=== PATIENT | male | born 1935 | race Caucasian/White ===

== ENCOUNTER → 2016-12-25 | Outpatient (CLI) | payer OTHER | LOC: BMCIMAGING 13:07 | PROVIDERS: ATTEND Internal Medicine | DX: R06.00 Dyspnea, unspecified (principal) ==

== ENCOUNTER → 2017-02-03 | Outpatient (CLI) | payer OTHER | LOC: BMCIMAGING 13:31 | PROVIDERS: ATTEND Psychiatry & Neurology Neurology | DX: M79.605 Pain in left leg (principal) ==

== ENCOUNTER 2017-04-11 08:37 | Day surgery (SDC) | payer OTHER ==
[2017-04-11] MEDS ORDERED: ASPIRIN EC 325 MG TAB PO ONE (08:41)
[2017-04-11] MEDS ORDERED: DIAZEPAM 5 MG TAB PO ONE (08:41)
[2017-04-11] MEDS ORDERED: diphenhydrAMINE 25 MG CAP PO ONE (08:41)
[2017-04-11] MEDS ORDERED: FAMOTIDINE 20 MG TAB PO ONE (08:41)
[2017-04-11] MEDS ORDERED: NS 1,000 ML IV ONE (08:41)
--- NOTE | 2017-04-11 09:10 | PDGENHP ---
History & Physical Chief Complaint: sob History of Present Illness: 81 yo s/p CABG with failed SVG to Cx and patent RIVERS with new cardiomyopathy. EF 50-30% Relevant Physical Exam: Obese male no distress. Alert oriented. Nojvp. chest clear. sternotomy healed. RRR no murmur. fem pulse 2 equal. radial pulse 2 equal Cardiorespiratory Assessment: 1. No contraindications to R/L hc today. 2. New cardiomyopathy with severe CAD.
--- NOTE | 2017-04-11 09:11 | CPEKG ---
Heart Rate: 68 RR Interval: 882 P-R Interval: 336 QRSD Interval: 102 QT Interval: 432 QTC Interval: 460 P [place]: -1 QRS [place]: 27 T Wave [place]: 125 EKG Severity - ABNORMAL ECG - EKG Impression: SINUS RHYTHM WITH PROLONGING ID INTERVAL AND SOME JUNCTIONAL ESCAPE EKG Impression: VENTRICULAR PREMATURE COMPLEX EKG Impression: FIRST DEGREE AV BLOCK EKG Impression: NONSPECIFIC T ABNORMALITIES, LATERAL LEADS Electronically Signed By: Christina Hicks 11-Apr-2017 21:21:22
--- NOTE | 2017-04-11 09:11 | PDPROPOC ---
Sedation Plan of Care Sedation Plan of Care: vital signs stable, mental status noted, patient educated of risks, benefits, alternatives, patient can tolerate sedation ASA Classification: ASA 1 Planned drugs: fentanyl, midazolam Mallampati Score: Class 1 Mallampati Reference Image: Patient passed 3-3-2 rule?: Yes (332)
[2017-04-11 09:24] LABS: % IMMATURE GRANULYOCYTES 0.2 % (0.0-1.1); ABSOLUTE IMMATURE GRANULOCYTES 0.01 10^3/uL (0.00-0.10); ADD DIFF? NO; ADD MORPH? NO; ADD SCAN? NO; ATYPICAL LYMPHOCYTE FLAG 0 (0-99); FRAGMENT RBC FLAG 0 (0-99); HEMOGLOBIN 14.3 g/dL (13.7-17.5); LEFT SHIFT FLG 0 (0-99); LIPEMIA HEMOLYSIS FLAG 90 (0-99); MEAN CELL HEMOGLOBIN 32.7 pg (27.9-34.1); MEAN CELL HEMOGLOBIN CONCENTR. 34.9 g/dL (32.4-36.7); MEAN CELL VOLUME 93.8 fL (81.5-99.8); MEAN PLATELET VOLUME 10.5 fL (8.7-11.7); PLATELET CLUMPS FLAG 20 (0-99); PLATELET COUNT 167 10^3/uL (150-400); RED BLOOD CELL COUNT 4.37 10^6/uL (4.40-6.38); RED CELL DISTRIBUTION WIDTH 12.3 % (11.5-15.2)
[2017-04-11 09:35] LABS: INR 1.15 (0.83-1.16); PROTIME(PATIENT) 14.6 SEC (12.0-15.0)
[2017-04-11] MEDS ORDERED: IOPAMIDOL (ISOVUE-370) 150 ML BTL IV ONE (09:37)
[2017-04-11] MEDS ORDERED: MIDAZOLAM 2 MG/2 ML VIAL ONE (09:37)
[2017-04-11] MEDS ORDERED: fentaNYL 100 MCG/2 ML INJ ONE (09:37)
[2017-04-11] MEDS ORDERED: LIDOCAINE 1% 300 MG/30 ML SDV ONE (09:37)
[2017-04-11 09:48] LABS: ANION GAP 14 mEq/L (8-16); CALCIUM 9.2 mg/dL (8.5-10.4); CARBON DIOXIDE 19 mEq/l (22-31); CHLORIDE 107 mEq/L (97-110); CHOLESTEROL 107 mg/dL (140-220); CHOLESTEROL/HDL RATIO 2.82 RATIO (1.00-4.97); CREATININE 1.4 mg/dL (0.7-1.3); GLOMERULAR FILTRATION RATE 49; GLUCOSE 105 mg/dL (70-100); HIGH DENSITY LIPOPROTEIN 38 mg/dL (40-65); LDL/HDL RATIO 1.26 RATIO (1.00-3.64); LOW DENSITY LIPOPROTEIN 48 mg/dL (80-100); MAGNESIUM 2.3 mg/dL (1.6-2.3); NON-HIGH DENSITY LIPOPROTEIN 69 mg/dL (90-129); POTASSIUM 4.4 mEq/L (3.5-5.2); SODIUM 140 mEq/L (134-144); TRIGLYCERIDE 108 mg/dL (40-150); VERY LOW DENSITY LIPOPROTEINS 21 mg/dL (8-25)
[2017-04-11] MEDS ORDERED: ATROPINE SULFATE 1 MG/10 ML SYR IVP PRN (11:09)
--- NOTE | 2017-04-11 11:16 | PDDXCAT ---
Diagnostic Cath Note - . Date: 04/11/17 Infectious Diseases Physician: Jagdish High-risk criteria on non-invasive testing: severe exercise left ventricular dysfunction (exercise LVEF<35%), stress-induced mod-size perf defect w LV dilatation or inc lung uptake - Procedure Access: right groin Procedure: left heart catheterization, coronary angiography, left ventriculogram , right heart catheterization - Materials Left Heart Cath size: 6F Left Heart Cath materials: standard multipack (JL4, JR4, pigtail), ARIANNE Right Heart Cath size: 7F Right Heart Cath materials: PWP catheter - Findings-Left Heart Catheterization LM: Distal obstruction of 70% into the circ ostium. Left anterior descending ostium improved from prior angiogram LAD: Large vessel extends to the apex. Patent mammary artery to the mid vessel. Retrograde filling. Ostial 50% stenosis. LCX: 80% ostial stenosis involving the left main. Unchanged from 2009. RCA: Widely stented. Widely patent without new focal stenosis. Dominant vessel. RIVERS: Atretic but patent to the LAD. EDP: 12 mm of mercury LVEF: 35% with large anterolateral akinetic segment. Unchanged from 2009. - Findings-Right Heart Catheterization RA: 7 mm of mercury RV: 32/7 mm of mercury PA: 32/15 mm of mercury PAOP: 15 mm of mercury Complications: None Estimated blood loss: <50ml Closure method: Angioseal Assessment: 1. Patent mammary artery to the LAD with improving LAD ostial stenosis. 2. 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 3. Dominant right coronary widely stented without restenoses. 4. Severely reduced LV systolic function with anterolateral scar. 5. Normal filling pressures. Compared to study in 2009 there has been no change in revascularization status or LV function. Plan: Discussed options for further therapy including aggressive medical management and broadening differential for shortness of breath versus PCI of the ostial circ stenosis. This would be a high risk procedure and would likely involve the ostium of the left anterior descending artery and distal left main. This would be unprotected with the atretic mammary artery. Discussed with Dr. Thayer and will proceed with medical therapy with continued consultation. Patient Problems: Problems Problem Status Onset Coronary artery disease Acute
[2017-04-11 15:42] VITALS: BP 159/66; RESP 28; O2SAT 98
== END 2017-04-11 15:24 | disposition home or self-care (01) ==
LOC: FCATH 08:37
PROVIDERS: ATTEND Internal Medicine Interventional Cardiology
PROC: B2151ZZ Fluoroscopy of Left Heart using Low Osmolar Contrast (ICD-10-PCS; principal; 2017-04-11)
PROC: 4A023N8 Measurement of Cardiac Sampling and Pressure, Bilateral, Percutaneous Approach (ICD-10-PCS; principal; 2017-04-11)
PROC: B2111ZZ Fluoroscopy of Multiple Coronary Arteries using Low Osmolar Contrast (ICD-10-PCS; principal; 2017-04-11)
DX: I25.10 Atherosclerotic heart disease of native coronary artery without angina pectoris (principal); I42.9 Cardiomyopathy, unspecified; R06.02 Shortness of breath; E03.9 Hypothyroidism, unspecified; G47.33 Obstructive sleep apnea (adult) (pediatric); N40.0 Benign prostatic hyperplasia without lower urinary tract symptoms; I10 Essential (primary) hypertension; E78.5 Hyperlipidemia, unspecified; E66.9 Obesity, unspecified; Z68.34 Body mass index [BMI] 34.0-34.9, adult; Z95.5 Presence of coronary angioplasty implant and graft; Z95.1 Presence of aortocoronary bypass graft
CPT/HCPCS: C1760; J1644; J2250; J3010; Q9967

== ENCOUNTER → 2017-04-21 | Outpatient (CLI) | payer OTHER | LOC: BMCIMAGING 09:12 | PROVIDERS: ATTEND Internal Medicine Cardiovascular Disease | DX: R06.02 Shortness of breath (principal); I51.7 Cardiomegaly; I25.10 Atherosclerotic heart disease of native coronary artery without angina pectoris ==

== ENCOUNTER → 2017-07-11 | Outpatient (CLI) | payer OTHER | LOC: BMCIMAGING 15:09 | PROVIDERS: ATTEND Internal Medicine | DX: J43.9 Emphysema, unspecified (principal); Z09 Encounter for follow-up examination after completed treatment for conditions other than malignant neoplasm ==

== ENCOUNTER → 2017-12-24 | Outpatient (CLI) | payer OTHER | LOC: BHFA 15:30 | PROVIDERS: ATTEND Internal Medicine Cardiovascular Disease | DX: I42.9 Cardiomyopathy, unspecified (principal) ==

== ENCOUNTER → 2018-04-30 | Outpatient (CLI) | payer OTHER | LOC: BHFA 14:00 | PROVIDERS: ATTEND Internal Medicine Interventional Cardiology | DX: I42.9 Cardiomyopathy, unspecified (principal) ==